=== PATIENT | female | born 1980 | race Caucasian/White ===

== ENCOUNTER 2018-08-18 15:13 | Emergency (ER) | payer OTHER ==
[2018-08-18 15:21] VITALS: RESP 18
[2018-08-18] MEDS ORDERED: ACETAMINOPHEN TAB 500 MG TAB PO STA (15:49)
--- NOTE | 2018-08-18 15:54 | ED ---
General Adult HPI - General Chief complaint: Head Injury Stated complaint: Dizzy Source: patient, RN notes reviewed Mode of arrival: ambulatory Limitations: no limitations - History of Present Illness Initial comments: Patient is a 38-year-old female with history of migraines and chronic neck pain who presents the emergency department with complaint of headache that started yesterday after she hit the top of her head on the freezer door at 3 PM yesterday. She reported headache started about 3 hours after that and has continued through today. She tried taking Aleve yesterday without relief. Denies taking any pain medication today. Denies any blood thinner use. Admits to feeling dizzy. Admits to neck pain which she states is chronic. Denies loss of consciousness. Patient denies any recent fever, chills, shortness of breath, chest pain, back pain, abdominal pain, nausea or vomiting, numbness or tingling , visual changes, or any other complaints. - Related Data Previous Rx's Medication Instructions Recorded Ibuprofen 800 mg PO Q8H PRN 7 Days #21 tablet 05/17/18 valACYclovir HCL [Valacyclovir] 1,000 mg PO Q12HR 7 Days #14 tab 05/17/18 Allergies Allergy/AdvReac Type Severity Reaction Status Date / Time Penicillins Allergy Unknown Verified 08/18/18 15:15 Review of Systems ROS Statement: Those systems with pertinent positive or pertinent negative responses have been documented in the HPI. ROS Other: All systems not noted in ROS Statement are negative. Past Medical History Additional Past Medical History / Comment(s): PCOS History of Any Multi-Drug Resistant Organisms: None Reported Additional Past Surgical History / Comment(s): D/C Past Psychological History: No Psychological Hx Reported Smoking Status: Never smoker Past Alcohol Use History: Occasional Past Drug Use History: None Reported General Exam Limitations: no limitations General appearance: alert, in no apparent distress Head exam: Present: atraumatic, normocephalic Eye exam: Present: normal appearance, PERRL, EOMI ENT exam: Present: normal oropharynx, TM's normal bilaterally, normal external ear exam Neck exam: Present: full ROM, other (Chronic neck pain; pain with ROM. No midline tenderness to palpation.) Respiratory exam: Present: normal lung sounds bilaterally. Absent: wheezes, rales, rhonchi Cardiovascular Exam: Present: regular rate, normal rhythm Extremities exam: Present: other (Strength 5/5 all extremities.) Back exam: Absent: tenderness Neurological exam: Present: alert, oriented X3, CN II-XII intact, normal gait Skin exam: Present: warm, dry Course Vital Signs 08/18/18 15:15 Temperature 98.2 F Pulse Rate 62 Respiratory 18 Rate Blood Pressure 125/81 O2 Sat by Pulse 99 Oximetry Medical Decision Making - Medical Decision Making Ordered Tylenol here. CT of the brain is negative. CT of the cervical spine reveals cervical kyphosis, but is otherwise negative. Case discussed in detail with attending physician Dr. Alfaro. Disposition Clinical Impression: Head injury Disposition: HOME SELF-CARE Condition: Good Instructions (If sedation given, give patient instructions): Head Injury (ED) Additional Instructions: Follow-up with your PCP in 1 to 2 days. Return to the emergency department if your symptoms worsen or other concerns. Is patient prescribed a controlled substance at d/c from ED?: No Referrals: Ai Ibarra MD [Primary Care Provider] - 1-2 days Time of Disposition: 17:00
--- NOTE | 2018-08-18 16:32 | CT ---
EXAMINATION TYPE: CT brain herb wo con DATE OF EXAM: 08/18/2018 COMPARISON: 04/16/2011 HISTORY: head and neck pain. CT DLP: 1571.8 mGycm, Automated exposure control for dose reduction was used. CONTRAST: Patient injected with 0 mL of Isovue 300. CT of the brain is performed utilizing 3 mm thick sections through the posterior fossa and 3 mm thick sections through the remaining calvarium. Study is performed within 24 hours of arrival to the hospital. No abnormal hyperdensity is present to suggest an acute intracranial hemorrhage. No mass lesion is evident. No acute infarcts are evident. Ventricles and sulci are appropriate for the patient age. Hyperostosis frontalis internus is present, a normal variant. Paranasal sinuses and mastoid air cells within the [id number] are clear. IMPRESSIONS: 1. No acute intracranial process. CT cervical spine. COMPARISON: None CT of the cervical spine is performed in the axial plane at 2 mm thick sections. Reconstructed image s in the coronal, and sagittal plane are reviewed on the computer. No acute fractures are evident. There is a cervical kyphosis present. Disc heights are preserved. Vertebral body heights are preserved. No spinal canal stenosis is evident. No neural foraminal stenosis is evident. IMPRESSIONS: 1. Cervical kyphosis. No acute cervical abnormality otherwise identified.
[2018-08-18 17:13] VITALS: BP 129/74; PULSE 52; TEMP 97.5
== END 2018-08-18 17:12 | disposition home or self-care (01) ==
LOC: EC 15:13
DX: S09.90XA Unspecified injury of head, initial encounter (principal); M40.202 Unspecified kyphosis, cervical region; Z88.0 Allergy status to penicillin; W22.8XXA Striking against or struck by other objects, initial encounter
CPT/HCPCS: 70450; 72125; 99284

== ENCOUNTER 2018-10-25 18:14 | Emergency (ER) | payer OTHER ==
[2018-10-25] MEDS ORDERED: SODIUM CHLORIDE 0.9% 1,000 ML IV ONE (18:44)
[2018-10-25] MEDS ORDERED: KETOROLAC 30 MG/ML 1 ML VIAL IVP STA (18:44)
--- NOTE | 2018-10-25 19:03 | ED ---
Female Urogenital HPI - General Chief complaint: Vaginal Bleeding Stated complaint: vag bleeding Time Seen by Provider: 10/25/18 18:23 Source: patient Mode of arrival: ambulatory Limitations: no limitations - History of Present Illness Initial comments: 38 year-old female patient presents to the emergency department today for evaluation of heavy vaginal bleeding with passage of large clots. Patient states that her last menstrual period started on September 30 and ended on the first. She states she started bleeding again on October 18 and has been bleeding since. Patient states she is wearing 2 pads at a time and having to change them every hour. States she is passing half-dollar size clots. States she is having cramping to the suprapubic region. Denies any radiation of the pain to her back. Patient states she does have a history of polycystic ovarian syndrome and does have irregular periods. Patient states she did call her panelboard tank pumper today who directed her to present to the emergency department for further evaluation. Patient states she has feeling fatigued but denies any dizziness or weakness. She denies any use of antiplatelet antiplatelet medications. Denies any chance of . She is G4, PO, A4. Patient denies any recent rash, fever, chills, shortness breath, chest pain, nausea, vomiting, diarrhea, constipation, numbne ss, tingling, dizziness, weakness, hematuria, dysuria, urinary urgency, urinary frequency, headache, visual changes, or any other complaints. - Related Data Previous Rx's Medication Instructions Recorded Ibuprofen 800 mg PO Q8H PRN 7 Days #21 tablet 05/17/18 valACYclovir HCL [Valacyclovir] 1,000 mg PO Q12HR 7 Days #14 tab 05/17/18 Ibuprofen 800 mg PO TID PRN #30 tablet 10/25/18 Allergies Allergy/AdvReac Type Severity Reaction Status Date / Time Penicillins Allergy Unknown Verified 10/25/18 18:20 Review of Systems ROS Statement: Those systems with pertinent positive or pertinent negative responses have been documented in the HPI. ROS Other: All systems not noted in ROS Statement are negative. Past Medical History Additional Past Medical History / Comment(s): PCOS History of Any Multi-Drug Resistant Organisms: None Reported Additional Past Surgical History / Comment(s): D/C Past Psychological History: No Psychological Hx Reported Smoking Status: Never smoker Past Alcohol Use History: Occasional Past Drug Use History: None Reported General Exam Limitations: no limitations General appearance: alert, in no apparent distress, other (Physical well- developed, well-nourished adult female patient in no acute distress. Vital signs upon presentation are temperature 98.4F, pulse 71, respirations 18, blood pressure 113/68, pulse ox 98% on room air.) Eye exam: Present: normal appearance, PERRL, EOMI. Absent: scleral icterus, conjunctival injection, periorbital swelling ENT exam: Present: normal exam, normal oropharynx, mucous membranes moist Respiratory exam: Present: normal lung sounds bilaterally. Absent: respiratory distress, wheezes, rales, rhonchi, stridor Cardiovascular Exam: Present: regular rate, normal rhythm, normal heart sounds. Absent: systolic murmur, diastolic murmur, rubs, gallop, clicks GI/Abdominal exam: Present: soft, tenderness (Suprapubic tenderness), normal bowel sounds. Absent: distended, guarding, rebound, rigid External exam: Present: normal external exam Speculum exam: Present: vaginal bleeding (Mild dark red vaginal bleeding) By manual exam: Present: uterine tenderness. Absent: adnexal tenderness Neurological exam: Present: alert, oriented X3, CN II-XII intact Psychiatric exam: Present: normal affect, normal mood Skin exam: Present: warm, dry, intact, normal color. Absent: rash Course Vital Signs 10/25/18 10/25/18 18:18 20:20 Temperature 98.4 F 97.3 F L Pulse Rate 71 57 L Respiratory 18 16 Rate Blood Pressure 113/68 95/44 O2 Sat by Pulse 98 100 Oximetry Medical Decision Making - Medical Decision Making 38-year-old female patient presented to the emergency department today for evaluation of heavy vaginal bleeding. Physical examination is unremarkable. Did see a small amount of dark red vaginal bleeding and pelvic exam. Labs reviewed and are unremarkable. Transvaginal ultrasound was obtained and showed normal uterus with left-sided ovarian cyst measuring 4.1 cm. She'll be discharged home at this time to follow-up with her panelboard tank pumper for recheck in 1-2 days. She was educated regarding signs or symptoms of ovarian torsion. Return parameters were discussed in detail. She verbalizes understanding and agrees with this plan. - Lab Data Result diagrams: 10/25/18 19:44 10/25/18 19:44 Lab Results 10/25/18 10/25/1810/25/19 Range/Units 19:44 19:44 19:44 WBC 7.5 (3.8-10.6) k/uL RBC 4.36 (3.80-5.40) m/uL Hgb 12.1 (11.4-16.0) gm/dL Hct 36.7 (34.0-46.0) % MCV 84.2 (80.0-100.0) fL MCH 27.8 (25.0-35.0) pg MCHC 33.0 (31.0-37.0) g/dL RDW 14.4 (11.5-15.5) % Plt Count 254 (150-450) k/uL Neutrophils % 48 % Lymphocytes % 35 % Monocytes % 4 % Eosinophils % 12 % Basophils % 1 % Neutrophils # 3.6 (1.3-7.7) k/uL Lymphocytes # 2.6 (1.0-4.8) k/uL Monocytes # 0.3 (0-1.0) k/uL Eosinophils # 0.9 H (0-0.7) k/uL Basophils # 0.0 (0-0.2) k/uL PT 10.0 (9.0-12.0) sec INR 0.9 (<1.2) APTT 23.6 (22.0-30.0) sec Sodium 139 (137-145) mmol/L Potassium 3.9 (3.5-5.1) mmol/L Chloride 108 H (98-107) mmol/L Carbon Dioxide 22 (22-30) mmol/L Anion Gap 9 mmol/L BUN 14 (7-17) mg/dL Creatinine 0.73 (0.52-1.04) mg/dL Est GFR (CKD-EPI)AfAm >90 (>60 ml/min/1.73 sqM) Est GFR (CKD-EPI)NonAf >90 (>60 ml/min/1.73 sqM) Glucose 80 (74-99) mg/dL Calcium 8.9 (8.4-10.2) mg/dL Total Bilirubin 0.4 (0.2-1.3) mg/dL AST 21 (14-36) U/L ALT 29 (9-52) U/L Alkaline Phosphatase 50 (38-126) U/L Total Protein 6.9 (6.3-8.2) g/dL Albumin 3.8 (3.5-5.0) g/dL HCG, Qual Not Detected Urine Color Urine Appearance (Clear) Urine pH (5.0-8.0) Ur Specific [place] (1.001-1.035) Urine Protein (Negative) Urine Glucose (UA) (Negative) Urine Ketones (Negative) Urine Blood (Negative) Urine Nitrite (Negative) Urine Bilirubin (Negative) Urine Urobilinogen (<2.0) mg/dL Ur Leukocyte Esterase (Negative) Urine RBC (0-5) /hpf Urine WBC (0-5) /hpf Ur Squamous Epith Cells (0-4) /hpf Urine Bacteria (None) /hpf Urine Mucus (None) /hpf 10/25/18 Range/Units 20:10 WBC (3.8-10.6) k/uL RBC (3.80-5.40) m/uL Hgb (11.4-16.0) gm/dL Hct (34.0-46.0) % MCV (80.0-100.0) fL MCH (25.0-35.0) pg MCHC (31.0-37.0) g/dL RDW (11.5-15.5) % Plt Count (150-450) k/uL Neutrophils % % Lymphocytes % % Monocytes % % Eosinophils % % Basophils % % Neutrophils # (1.3-7.7) k/uL Lymphocytes # (1.0-4.8) k/uL Monocytes # (0-1.0) k/uL Eosinophils # (0-0.7) k/uL Basophils # (0-0.2) k/uL PT (9.0-12.0) sec INR (<1.2) APTT (22.0-30.0) sec Sodium (137-145) mmol/L Potassium (3.5-5.1) mmol/L Chloride (98-107) mmol/L Carbon Dioxide (22-30) mmol/L Anion Gap mmol/L BUN (7-17) mg/dL Creatinine (0.52-1.04) mg/dL Est GFR (CKD-EPI)AfAm (>60 ml/min/1.73 sqM) Est GFR (CKD-EPI)NonAf (>60 ml/min/1.73 sqM) Glucose (74-99) mg/dL Calcium (8.4-10.2) mg/dL Total Bilirubin (0.2-1.3) mg/dL AST (14-36) U/L ALT (9-52) U/L Alkaline Phosphatase (38-126) U/L Total Protein (6.3-8.2) g/dL Albumin (3.5-5.0) g/dL HCG, Qual Urine Color Colorless Urine Appearance Clear (Clear) Urine pH 6.0 (5.0-8.0) Ur Specific [place] 1.004 (1.001-1.035) Urine Protein Negative (Negative) Urine Glucose (UA) Negative (Negative) Urine Ketones Negative (Negative) Urine Blood Moderate H (Negative) Urine Nitrite Negative (Negative) Urine Bilirubin Negative (Negative) Urine Urobilinogen <2.0 (<2.0) mg/dL Ur Leukocyte Esterase Negative (Negative) Urine RBC 1 (0-5) /hpf Urine WBC <1 (0-5) /hpf Ur Squamous Epith Cells <1 (0-4) /hpf Urine Bacteria Rare H (None) /hpf Urine Mucus Rare H (None) /hpf - Radiology Data Radiology results: report reviewed, image reviewed Transvaginal ultrasound is obtained. Report was reviewed in its entirety. Impression by Dr. Rader shows a 4.1cm cyst or cystic lesion left ovary. Advised ultrasound follow-up in 6 weeks. Disposition Clinical Impression: Dysfunctional uterine bleeding, Left ovarian cyst Disposition: HOME SELF-CARE Condition: Good Instructions (If sedation given, give patient instructions): Dysfunctional Uterine Bleeding (ED), Ovarian Cyst (ED) Additional Instructions: Increase fluids. Follow-up with her panelboard tank pumper for recheck as soon as possible. Return to the emergency department immediately for any new, worseni ng, or concerning symptoms. Prescriptions: Ibuprofen 800 mg PO TID PRN #30 tablet PRN Reason: Pain Is patient prescribed a controlled substance at d/c from ED?: No Referrals: Ai Ibarra MD [Primary Care Provider] - 1-2 days Time of Disposition: 20:43
--- NOTE | 2018-10-25 19:41 | US ---
EXAMINATION TYPE: US transvaginal DATE OF EXAM: 10/25/2018 COMPARISON: Pelvic ultrasound 2013 CLINICAL HISTORY: pain. Heavy bleeding cramping PCOS. TECHNIQUE: Transvaginal (TV). EXAM MEASUREMENTS: Uterus: 6.3 x 3.9 x 4.8 cm Endometrial Stripe: 0.5 cm Right Ovary: 3.5 x 2.2 x 3.2 cm Left Ovary: 3.9 x 3.1 x 3.8 cm 1. Uterus: Anteverted Nabothian cyst seen. 2. Endometrium: wnl 3. Right Ovary: Follicles seen. 4. Left Ovary: Cystic area seen 4.1 x 2.1 x 3.3cm. Spectral, color and waveform doppler imaging shows good arterial and venous flow within the ovaries ;. 5. Bilateral Adnexa: wnl 6. Posterior cul-de-sac: wnl Heterogeneous uterus is seen. No free fluid in cul-de-sac. No suspicious thickening of endometrial. T here is 4.1 cm oval cystic lesion left ovary not completely anechoic. Satisfactory blood flow to left ovary is noted towards end of study. IMPRESSION: A 4.1 cm cyst or cystic lesion left ovary. Advise ultrasound follow-up in 6 weeks' time t o reassess.
[2018-10-25 19:56] LABS: Basophils % (A) 1 %; Eosinophils # (A) 0.9 k/uL (0-0.7); Eosinophils % (A) 12 %; HCT 36.7 % (34.0-46.0); HGB 12.1 gm/dL (11.4-16.0); Lymphocytes # (A) 2.6 k/uL (1.0-4.8); Lymphocytes % (A) 35 %; MCH 27.8 pg (25.0-35.0); MCV 84.2 fL (80.0-100.0); Mean Platelet Volume 7.9; Monocytes # (A) 0.3 k/uL (0-1.0); Monocytes % (A) 4 %; Neutrophils # (A) 3.6 k/uL (1.3-7.7); Neutrophils % (A) 48 %; Platelet Count 254 k/uL (150-450); RBC 4.36 m/uL (3.80-5.40); RDW 14.4 % (11.5-15.5); WBC 7.5 k/uL (3.8-10.6)
[2018-10-25 20:05] LABS: ALT 29 U/L (9-52); AST 21 U/L (14-36); Albumin 3.8 g/dL (3.5-5.0); Alkaline Phosphatase 50 U/L (38-126); Anion Gap 9 mmol/L; Blood Urea Nitrogen 14 mg/dL (7-17); Calcium 8.9 mg/dL (8.4-10.2); Carbon Dioxide 22 mmol/L (22-30); Chloride 108 mmol/L (98-107); Glucose 80 mg/dL (74-99); Potassium 3.9 mmol/L (3.5-5.1); Sodium 139 mmol/L (137-145); Total Bilirubin 0.4 mg/dL (0.2-1.3); Total Protein 6.9 g/dL (6.3-8.2)
[2018-10-25 20:09] LABS: INR 0.9 (<1.2); Partial Thromboplastin Time 23.6 sec (22.0-30.0)
[2018-10-25 20:15] LABS: HCG,Qualitative Serum Not Detected
[2018-10-25 20:34] LABS: Appearance,Urine Clear (Clear); Bacteria,Urine Rare /hpf; Bilirubin,Urine Negative (Negative); Blood,Urine Moderate (Negative); Color,Urine Colorless; Glucose,Urine (UA) Negative (Negative); Ketones,Urine Negative (Negative); Leukocyte Esterase,Urine Negative (Negative); Mucus,Urine Rare /hpf; Nitrite,Urine Negative (Negative); Protein,Urine Negative (Negative); RBC,Urine 1 /hpf (0-5); Specific Gravity,Urine 1.004 (1.001-1.035); Squamous Epithelial Cell,Urine <1 /hpf (0-4); Urobilinogen,Urine <2.0 mg/dL (<2.0); WBC,Urine <1 /hpf (0-5)
[2018-10-25] MEDS ORDERED: ACET/COD 300 MG/30 MG STARTER PACK 6 TAB BTL PO STA (20:43)
[2018-10-25 20:51] VITALS: BP 95/44; PULSE 57; RESP 16; TEMP 97.3
== END 2018-10-25 21:14 | disposition home or self-care (01) ==
LOC: EC 18:14
DX: N83.202 Unspecified ovarian cyst, left side (principal); N93.8 Other specified abnormal uterine and vaginal bleeding; Z88.0 Allergy status to penicillin
CPT/HCPCS: 36415; 80053; 85025; 85610; 85730; 81001; 84703; 93975; 76830; 99284; 96374; 96361; J1885

== ENCOUNTER 2021-01-15 06:04 | Day surgery (SDC) | payer OTHER ==
[2021-01-10 10:11] VITALS: BMI 47.1
[2021-01-15 08:09] VITALS: RESP 16; TEMP 97.7
[2021-01-15 09:40] VITALS: BP 113/69; PULSE 71
== END 2021-01-15 10:06 | disposition home or self-care (01) ==
LOC: OR 06:04
PROVIDERS: ATTEND Obstetrics & Gynecology
DX: N92.0 Excessive and frequent menstruation with regular cycle (principal); L91.8 Other hypertrophic disorders of the skin; E28.2 Polycystic ovarian syndrome; D64.9 Anemia, unspecified; M54.6 Pain in thoracic spine; M54.5 Low back pain; E66.01 Morbid (severe) obesity due to excess calories; N94.6 Dysmenorrhea, unspecified; M79.18 Myalgia, other site; Z86.711 Personal history of pulmonary embolism; Z79.01 Long term (current) use of anticoagulants; G25.81 Restless legs syndrome; Z86.718 Personal history of other venous thrombosis and embolism; D68.69 Other thrombophilia; R42 Dizziness and giddiness; Z68.42 Body mass index [BMI] 45.0-49.9, adult; Z88.0 Allergy status to penicillin; M32.9 Systemic lupus erythematosus, unspecified; J45.909 Unspecified asthma, uncomplicated
CPT/HCPCS: 81025; 88304; 88305; 17110; 58563; J2250; J0330; J1100; J2405; J2001; J3010; J2704; J1170

== ENCOUNTER 2022-04-17 11:33 | Observation (INO) | payer OTHER ==
[2022-04-17 12:58] LABS: Basophils # (A) 0.1 k/uL (0-0.2); Basophils % (A) 1 %; Eosinophils # (A) 0.2 k/uL (0-0.7); Eosinophils % (A) 3 %; HCT 39.7 % (34.0-46.0); HGB 13.1 gm/dL (11.4-16.0); Lymphocytes # (A) 2.7 k/uL (1.0-4.8); Lymphocytes % (A) 34 %; MCH 29.2 pg (25.0-35.0); MCHC 32.9 g/dL (31.0-37.0); MCV 88.6 fL (80.0-100.0); Monocytes # (A) 0.5 k/uL (0-1.0); Monocytes % (A) 6 %; Neutrophils # (A) 4.4 k/uL (1.3-7.7); Neutrophils % (A) 55 %; Platelet Count 315 k/uL (150-450); RBC 4.48 m/uL (3.80-5.40); RDW 13.4 % (11.5-15.5)
--- NOTE | 2022-04-17 13:06 | XR ---
EXAMINATION TYPE: XR chest 2V DATE OF EXAM: 04/17/2022 12:57 PM COMPARISON: None TECHNIQUE: XR chest 2V Frontal and lateral views of the chest. CLINICAL INDICATION:Female, 41 years old with history of Chest Pain; FINDINGS: Lungs/Pleura: There is no evidence of pleural effusion, focal consolidation, or pneumothorax. Eventr ation of the right hemidiaphragm. Pulmonary vascularity: Unremarkable. Heart/mediastinum: Cardiomediastinal silhouette is unremarkable. Musculoskeletal: No acute osseous pathology. IMPRESSION: No acute cardiopulmonary disease/process.
[2022-04-17 13:10] LABS: ALT 26 U/L (4-34); AST 24 U/L (14-36); African American GFR (CKD) >90 (>60 ml/min/1.73 sqM); Albumin 4.1 g/dL (3.5-5.0); Alkaline Phosphatase 60 U/L (38-126); Anion Gap 10 mmol/L; Blood Urea Nitrogen 18 mg/dL (7-17); Calcium 9.1 mg/dL (8.4-10.2); Carbon Dioxide 22 mmol/L (22-30); Chloride 104 mmol/L (98-107); Glucose 88 mg/dL (74-99); Non-African American GFR(CKD) 88 (>60 ml/min/1.73 sqM); Partial Thromboplastin Time 25.9 sec (22.0-30.0); Potassium 4.5 mmol/L (3.5-5.1); Prothrombin Time 10.7 sec (9.0-12.0); Sodium 136 mmol/L (137-145); Total Bilirubin 0.6 mg/dL (0.2-1.3); Total Protein 6.9 g/dL (6.3-8.2)
--- NOTE | 2022-04-17 18:11 | ED ---
General Adult HPI - General Chief complaint: Chest Pain Stated complaint: Chest pain, L arm tingling Time Seen by Provider: 04/17/22 17:45 Source: patient, RN notes reviewed Mode of arrival: wheelchair Limitations: no limitations - History of Present Illness Initial comments: Patient is a pleasant 41-year-old female presenting to the emergency department with concerns of chest discomfort. Onset of symptoms was an hour prior to arrival. Symptoms do continue. Symptoms are mild. Discomfort feels sharp however patient has been belching some. There is some discomfort, mild the left arm as well. No dyspnea. No nausea. Patient does have history of lupus and does have history of family heart disease at a young age. - Related Data Home Medications Medication Instructions Recorded Confirmed Acetaminophen-Codeine 300-30mg 1 tab PO Q6H PRN 01/10/21 12/03/21 [Tylenol w/codeine #3] Cyclobenzaprine [Flexeril] 10 mg PO DAILY PRN 01/10/21 12/03/21 Peggy Root Vitamin 1 tab PO DAILY 01/10/21 12/03/21 Meclizine [Antivert] 12.5 mg PO DAILY 01/10/21 12/03/21 Rivaroxaban [Xarelto] 20 mg PO DAILY 01/10/21 12/03/21 Famotidine [Pepcid] 20 mg PO DAILY 01/15/21 12/03/21 DULoxetine HCL [Cymbalta] 60 mg PO 03/19/22 Furosemide [Lasix] 03/19/22 Gabapentin [Neurontin] 100 mg PO TID 03/19/22 03/19/22 Phentermine HCl [Adipex-P] 37.5 mg PO DAILY 03/19/22 03/19/22 Propranolol [Inderal] 20 mg PO QID 03/19/22 03/19/22 Spironolactone 50 mg PO 03/19/22 Allergies Allergy/AdvReac Type Severity Reaction Status Date / Time Penicillins Allergy Rash/Hives Verified 03/26/22 12:08 Review of Systems ROS Statement: Those systems with pertinent positive or pertinent negative responses have been documented in the HPI. ROS Other: All systems not noted in ROS Statement are negative. Constitutional: Denies: fever Eyes: Denies: eye pain ENT: Denies: ear pain Respiratory: Denies: cough, dyspnea Cardiovascular: Reports: as per HPI, chest pain Endocrine: Denies: fatigue Gastrointestinal: Denies: abdominal pain Genitourinary: Denies: dysuria Musculoskeletal: Denies: back pain Skin: Denies: rash Neurological: Denies: weakness Past Medical History Past Medical History: Asthma, Deep Vein Thrombosis (DVT), Pulmonary Embolus (PE) Additional Past Medical History / Comment(s): hx of vertigo, Lupus, PCOS, hx of anemia, hx of iron infusions History of Any Multi-Drug Resistant Organisms: None Reported Past Surgical History: Ablation Additional Past Surgical History / Comment(s): D/C x2 Past Anesthesia/Blood Transfusion Reactions: Motion Sickness Past Psychological History: No Psychological Hx Reported Smoking Status: Never smoker - Past Family History Mother Family Medical History: No Reported History General Exam Limitations: no limitations General appearance: alert, in no apparent distress Head exam: Present: normocephalic Eye exam: Present: normal appearance Neck exam: Present: normal inspection Respiratory exam: Present: normal lung sounds bilaterally. Absent: chest wall tenderness Cardiovascular Exam: Present: regular rate, normal rhythm Expanded Peripheral pulses: 2+: Radial (R), Radial (L), Posterior Tibialis (R), Posterior Tibialis (L) GI/Abdominal exam: Present: soft. Absent: tenderness Extremities exam: Present: normal inspection. 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 CO 137. QRS 106. QT 374. QTC 392. Normal axis. Normal QRS. No acute ST change. EKG Findings - EKG Comments: EKG Findings:: Original EKG shows sinus rhythm 82. CO 147. QRS 99. QT 343. QTC 381. Normal axis. Normal QRS. No acute ST change. Medical Decision Making - Medical Decision Making Case discussed with Dr. Macias who will admit his patient. Patient is made aware of plan. - Lab Data Result diagrams: 04/17/22 12:22 04/17/22 12:22 Lab Results 04/17/22 04/17/22 04/17/22 Range/Units 12:22 12:22 12:22 WBC 8.0 (3.8-10.6) k/uL RBC 4.48 (3.80-5.40) m/uL Hgb 13.1 (11.4-16.0) gm/dL Hct 39.7 (34.0-46.0) % MCV 88.6 (80.0-100.0) fL MCH 29.2 (25.0-35.0) pg MCHC 32.9 (31.0-37.0) g/dL RDW 13.4 (11.5-15.5) % Plt Count 315 (150-450) k/uL MPV 8.0 Neutrophils % 55 % Lymphocytes % 34 % Monocytes % 6 % Eosinophils % 3 % Basophils % 1 % Neutrophils # 4.4 (1.3-7.7) k/uL Lymphocytes # 2.7 (1.0-4.8) k/uL Monocytes # 0.5 (0-1.0) k/uL Eosinophils # 0.2 (0-0.7) k/uL Basophils # 0.1 (0-0.2) k/uL PT 10.7 (9.0-12.0) sec INR 1.0 (<1.2) APTT 25.9 (22.0-30.0) sec D-Dimer <0.17 (<0.60) mg/L FEU Sodium 136 L (137-145) mmol/L Potassium 4.5 (3.5-5.1) mmol/L Chloride 104 (98-107) mmol/L Carbon Dioxide 22 (22-30) mmol/L Anion Gap 10 mmol/L BUN 18 H (7-17) mg/dL Creatinine 0.84 (0.52-1.04) mg/dL Est GFR (CKD-EPI)AfAm >90 (>60 ml/min/1.73 sqM) Est GFR (CKD-EPI)NonAf 88 (>60 ml/min/1.73 sqM) Glucose 88 (74-99) mg/dL Calcium 9.1 (8.4-10.2) mg/dL Magnesium 2.0 (1.6-2.3) mg/dL Total Bilirubin 0.6 (0.2-1.3) mg/dL AST 24 (14-36) U/L ALT 26 (4-34) U/L Alkaline Phosphatase 60 (38-126) U/L Troponin I (0.000-0.034) ng/mL NT-Pro-B Natriuret Pep pg/mL Total Protein 6.9 (6.3-8.2) g/dL Albumin 4.1 (3.5-5.0) g/dL 04/17/22 04/17/22 Range/Units 12:22 12:22 WBC (3.8-10.6) k/uL RBC (3.80-5.40) m/uL Hgb (11.4-16.0) gm/dL Hct (34.0-46.0) % MCV (80.0-100.0) fL MCH (25.0-35.0) pg MCHC (31.0-37.0) g/dL RDW (11.5-15.5) % Plt Count (150-450) k/uL MPV Neutrophils % % Lymphocytes % % Monocytes % % Eosinophils % % Basophils % % Neutrophils # (1.3-7.7) k/uL Lymphocytes # (1.0-4.8) k/uL Monocytes # (0-1.0) k/uL Eosinophils # (0-0.7) k/uL Basophils # (0-0.2) k/uL PT (9.0-12.0) sec INR (<1.2) APTT (22.0-30.0) sec D-Dimer (<0.60) mg/L FEU Sodium (137-145) mmol/L Potassium (3.5-5.1) mmol/L Chloride (98-107) mmol/L Carbon Dioxide (22-30) mmol/L Anion Gap mmol/L BUN (7-17) mg/dL Creatinine (0.52-1.04) mg/dL Est GFR (CKD-EPI)AfAm (>60 ml/min/1.73 sqM) Est GFR (CKD-EPI)NonAf (>60 ml/min/1.73 sqM) Glucose (74-99) mg/dL Calcium (8.4-10.2) mg/dL Magnesium (1.6-2.3) mg/dL Total Bilirubin (0.2-1.3) mg/dL AST (14-36) U/L ALT (4-34) U/L Alkaline Phosphatase (38-126) U/L Troponin I <0.012 (0.000-0.034) ng/mL NT-Pro-B Natriuret Pep 52 pg/mL Total Protein (6.3-8.2) g/dL Albumin (3.5-5.0) g/dL - Radiology Data Radiology results: image reviewed (Chest x-ray shows no acute process) Disposition Clinical Impression: Chest pain Disposition: ADMITTED IP TO THIS HOSP Is patient prescribed a controlled substance at d/c from ED?: No Referrals: Alex Macias MD [Primary Care Provider] - 1-2 days Time of Disposition: 18:29
[2022-04-17] MEDS ORDERED: NITROGLYCERIN SL TABS 0.4 MG TAB SUBLINGUAL PRN (18:29)
[2022-04-17] MEDS ORDERED: ASPIRIN 81 MG PO STA (18:29)
[2022-04-17] MEDS: NITROGLYCERIN OINT 1 INCH/GM PACKET TOPICAL SCH (19:00)
[2022-04-17] MEDS ORDERED: SYMBICORT 80-4.5 MCG INHALER INHALATION PRN (20:47)
[2022-04-17] MEDS ORDERED: Acetaminophen-Codeine 300-30mg TAB PO PRN (20:47)
[2022-04-17] MEDS ORDERED: PANTOPRAZOLE 40 MG TABLET PO SCH (21:00)
[2022-04-17] MEDS ORDERED: RIVAROXABAN 20 MG TAB PO SCH (21:47)
[2022-04-17] MEDS: PROPRANOLOL 20 MG TAB PO SCH (22:30)
[2022-04-17] MEDS: GABAPENTIN 100 MG CAP PO SCH (22:30)
[2022-04-17] MEDS: DULoxetine HCL 60 MG CAPSULE.DR PO SCH (22:31)
[2022-04-18] MEDS: NITROGLYCERIN OINT 1 INCH/GM PACKET TOPICAL SCH ×2 (00:20→09:36)
--- NOTE | 2022-04-18 04:54 | HP ---
HISTORY AND PHYSICAL HISTORY OF PRESENT ILLNESS: A 41-year-old female came to the ER with chest discomfort, onset of symptoms is an hour prior to admission. Symptoms were mild. She some discomfort in mid upper arm. No dyspnea or nausea. History of lupus. Family history of heart disease at young age. Troponins are negative x3. She is admitted for rule out VT. HOME MEDICATIONS: 1. Antivert 12.5 daily. 2. Xarelto 20 daily. 3. Pepcid 20 daily. 4. Cymbalta 60 daily. 5. Lasix daily. 6. Neurontin 100 mg t.i.d. 7. Tylenol 3 p.r.n. 8. Propranolol 20 q.i.d. 9. Spironolactone 50 mg daily. ALLERGIES: Penicillin. REVIEW OF SYSTEMS: A 14-point review of systems otherwise negative. No cough, shortness of breath, hemoptysis, tachypnea, or tachycardia. PAST MEDICAL HISTORY: Asthma, DVT, PE, history of vertigo, lupus, and anemia. PHYSICAL EXAMINATION: VITAL SIGNS: Temperature 97.46, pulse 77-90, respiratory rate 18-20, blood pressure 114 to 116 over 70s to 90s, and O2 100%. CARDIOVASCULAR: S1, S2. LUNGS: Clear. GI. Soft. HEMATOLOGY: Negative Homans. PSYCH: Fair mood and affect. ENDOCRINE: BMI is over 40. HEENT: Pupils equal, round, reactive. INTEGUMENT: No rash, excoriation, or bruising. EKG, sinus rhythm. LABORATORY DATA: Labs were reviewed. Negative troponins times 3. Negative D-dimer. ASSESSMENT: 1. Atypical chest pain, rule out myocardial infarction. 2. History of lupus. 3. History of asthma, chronic obstructive pulmonary disease. 4. History of multiple pulmonary embolisms. I suspect she is negative for any cardiac issues at this time. We will await to see what tumbler machine operator says in the morning to clear her prior to discharge. MMODL / IJN: [id number] /
[2022-04-18] MEDS ORDERED: SPIRONOLACTONE 25 MG TAB PO SCH (08:00)
[2022-04-18] MEDS ORDERED: PROPRANOLOL 20 MG TAB PO SCH (08:00)
[2022-04-18] MEDS ORDERED: DULoxetine HCL 60 MG CAPSULE.DR PO SCH (08:00)
[2022-04-18] MEDS ORDERED: FUROSEMIDE 20 MG TAB PO SCH (08:00)
[2022-04-18] MEDS ORDERED: ASPIRIN 325 MG TAB PO SCH (09:00)
[2022-04-18] MEDS ORDERED: ASPIRIN 81 MG PO SCH (09:00)
[2022-04-18 09:11] VITALS: BP 104/59; RESP 16; TEMP 98
[2022-04-18] MEDS: PROPRANOLOL 20 MG TAB PO SCH (09:36)
[2022-04-18] MEDS ORDERED: DOBUTamine DRIP for NUC MED 500 MG in DEXTROSE/WATER 1 250ML.BAG IV PRN (10:05)
[2022-04-18] MEDS ORDERED: SODIUM CHLORIDE 0.9% 1,000 ML IV SCH (10:15)
[2022-04-18 10:49] LABS: Chol/HDL Ratio 3.98 Ratio; LDL Cholesterol,Calculated 110.5 mg/dL (0.0-131.0); VLDL Calculation 18.34 mg/dL (5.00-40.00)
--- NOTE | 2022-04-18 11:11 | P.CRDCN ---
History of Present Illness History of present illness: HISTORY OF PRESENT ILLNESS: This is a 41-year-old female with a past medical history significant for DVT/PE (2 years ago) and lupus. 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 We have been asked to see the patient in consultation for chest pain. Patient examined a t the bedside. Patient states yesterday she began having pain in the upper part of her chest. She reports feeling short of breath as well. She states she began to have tingling in her left arm. She states the pain was intermittent throughout most of the day yesterday. She states she did not take anything for the pain. At the time of my examination this morning she denies any chest pain or pressure. She denies any previous cardiac workup. She denies any history of hypertension, hyperlipidemia, or diabetes. She is a nonsmoker. She denies using alcohol for over 1 year. She denies any drug use including marijuana. She reports a significant family history of coronary artery disease and states her dad had 2 heart attacks in his late 40s and at age 55. * EKG reveals sinus mechanism with nonspecific ST-T wave changes * Chest xray negative for acute process * Laboratory data: WBC 8.0. Hemoglobin 13.1. Platelet count 315. D-dimer 0.17. Sodium 136. Potassium 4.5. BUN 18. Creatinine 0.84. Troponin negative 3. * Current home cardiac medications include spironolactone 50 mg daily, Xarelto 20 mg at night, Lasix 20 mg daily REVIEW OF SYSTEMS: At the time of my exam: CONSTITUTIONAL: Denies fever or chills. HEENT: Denies blurred vision, vision changes, or eye pain. Denies hemoptysis CARDIOVASCULAR: Denies chest pain. Denies orthopnea. Denies PND. Denies palpitations RESPIRATORY: Denies shortness of breath. GASTROINTESTINAL: Denies abdominal pain. Denies nausea or vomiting. HEMATOLOGIC: Denies bleeding disorders. GENITOURINARY: Denies any blood in urine. SKIN: Denies pruitis. Denies rash. PHYSICAL EXAM: VITAL SIGNS: Reviewed. GENERAL: Well-developed in no acute distress. HEENT: Head is normocephalic. Pupils are equal, round. Sclerae anicteric. Mucous membranes of the mouth are moist. Neck supple. No JVD or thyromegaly LUNGS: Respirations even and unlabored. Lungs essentially clear to auscultation bilaterally. HEART: Regular rate and rhythm. S1 and S2 heard. ABDOMEN: Soft. Nondistended. Nontender. EXTREMITIES: Normal range of motion. No clubbing or cyanosis. Peripheral pulses intact. No lower extremity edema NEUROLOGIC: Awake and alert. Oriented x 3. ASSESSMENT: Chest pain, troponins negative 3 History of DVT/PE History of lupus Family history of premature coronary artery disease Morbid obesity PLAN: An acute coronary event has been ruled out Resume home cardiac medications Continue anticoagulation with Xarelto Obtain 2-D echo to assess cardiac structure and function Patient to undergo dobutamine stress echo today. If negative, she may be discharged home from a cardiac standpoint Further recommendations pending patient's course Nurse practitioner note has been reviewed by physician. Signing provider agrees with the documented findings, assessment, and plan of care. Past Medical History Past Medical History: Asthma, Deep Vein Thrombosis (DVT), Pulmonary Embolus (PE) Additional Past Medical History / Comment(s): hx of vertigo, Lupus, PCOS, hx of anemia, hx of iron infusions History of Any Multi-Drug Resistant Organisms: None Reported Past Surgical History: Ablation Additional Past Surgical History / Comment(s): D/C x2 Past Anesthesia/Blood Transfusion Reactions: Motion Sickness Past Psychological History: No Psychological Hx Reported Smoking Status: Never smoker Past Alcohol Use History: Occasional Past Drug Use History: None Reported - Past Family History Mother Family Medical History: No Reported History Medications and Allergies Home Medications Medication Instructions Recorded Confirmed Type Acetaminophen-Codeine 300-30mg 1 tab PO DAILY PRN 01/10/21 04/17/22 History [Tylenol w/codeine #3] Peggy Root Vitamin 1 tab PO DAILY@0800 01/10/21 04/17/22 History Meclizine [Antivert] 12.5 mg PO HS@182901/10/21 04/17/22 History Rivaroxaban [Xarelto] 20 mg PO HS@182901/10/21 04/17/22 History DULoxetine HCL [Cymbalta] 60 mg PO BID@0800,1830 03/19/22 04/17/22 History Furosemide [Lasix] 20 mg PO DAILY@0800 03/19/22 04/17/22 History Gabapentin [Neurontin] 100 mg PO TID 03/19/22 04/17/22 History Phentermine HCl [Adipex-P] 37.5 mg PO DAILY@0800 03/19/22 04/17/22 History Propranolol [Inderal] 20 mg PO BID@0800,1830 03/19/22 04/17/22 History Spironolactone 50 mg PO DAILY@0800 03/19/22 04/17/22 History Mometasone/Formoterol [Dulera 100 2 puff INHALATION RT-BID PRN 04/17/22 04/17/22 History Mcg-5 Mcg Inhaler] Pantoprazole Sodium [Protonix] 20 mg PO HS 04/17/22 04/17/22 History Allergies Allergy/AdvReac Type Severity Reaction Status Date / Time Penicillins Allergy Rash/Hives Verified 04/17/22 19:04 Physical Exam Vitals: Vital Signs Temp Pulse Pulse Resp BP BP Pulse Ox 04/18/22 04:00 97.8 F 84 18 98/67 98 04/18/22 01:40 101 H 16 04/18/22 00:00 97.8 F 101 H 16 107/65 98 04/17/22 22:00 16 142/91 99 04/17/22 21:00 98.0 F 72 20 116/79 98 04/17/22 20:00 64 16 04/17/22 19:00 97.8 F 70 18 118/82 99 04/17/22 18:37 64 18 142/91 99 04/17/22 18:06 76 20 04/17/22 16:33 97.6 F 77 18 116/79 100 04/17/22 12:03 97.4 F L 90 16 114/79 100 Intake and Output 04/17/22 04/18/22 04/18/22 22:59 06:59 14:59 Intake Total 600 Balance 600 Intake: Oral 600 Other: # Voids 1 Weight 140.614 kg Results 04/17/22 12:22 04/17/22 12:22 Cardiac Enzymes 04/17/22 04/17/22 04/17/22 Range/Units 12:22 12:22 18:46 AST 24 (14-36) U/L Troponin I <0.012 <0.012 (0.000-0.034) ng/mL 04/17/22 Range/Units 22:09 AST (14-36) U/L Troponin I <0.012 (0.000-0.034) ng/mL Coagulation 04/17/22 Range/Units 12:22 PT 10.7 (9.0-12.0) sec APTT 25.9 (22.0-30.0) sec CBC 04/17/22 Range/Units 12:22 WBC 8.0 (3.8-10.6) k/uL RBC 4.48 (3.80-5.40) m/uL Hgb 13.1 (11.4-16.0) gm/dL Hct 39.7 (34.0-46.0) % Plt Count 315 (150-450) k/uL Comprehensive Metabolic Panel 04/17/22 Range/Units 12:22 Sodium 136 L (137-145) mmol/L Potassium 4.5 (3.5-5.1) mmol/L Chloride 104 (98-107) mmol/L Carbon Dioxide 22 (22-30) mmol/L BUN 18 H (7-17) mg/dL Creatinine 0.84 (0.52-1.04) mg/dL Glucose 88 (74-99) mg/dL Calcium 9.1 (8.4-10.2) mg/dL AST 24 (14-36) U/L ALT 26 (4-34) U/L Alkaline Phosphatase 60 (38-126) U/L Total Protein 6.9 (6.3-8.2) g/dL Albumin 4.1 (3.5-5.0) g/dL Current Medications Generic Name Dose Route Start Last Admin Trade Name Freq PRN Reason Stop Dose Admin Acetaminophen/Codeine Phosphate 1 each 04/17/22 20:47 04/18/22 02:17 Acetaminophen-Codeine 300-30mg Tab PO 1 each DAILY PRN Administration Pain Aspirin 81 mg 04/18/22 09:00 Aspirin 81 Mg PO DAILY PIPE Budesonide/Formoterol Fumarate 2 puff 04/17/22 20:47 Symbicort 80-4.5 Mcg Inhaler INHALATION RT-BID PRN Shortness Of Breath Duloxetine HCl 60 mg 04/17/22 21:48 04/17/22 22:31 Duloxetine Hcl 60 Mg Capsule.Dr PO 60 mg BID PIPE Administration Furosemide 20 mg 04/18/22 08:00 Furosemide 20 Mg Tab PO DAILY@0800 PIPE Gabapentin 100 mg 04/17/22 22:00 04/17/22 22:30 Gabapentin 100 Mg Cap PO 100 mg TID PIPE Administration Nitroglycerin 0.5 inch 04/17/22 18:45 04/18/22 00:20 Nitroglycerin Oint 1 Inch/Gm Packet TOPICAL 0.5 inch Q6HR PIPE Administration Nitroglycerin 0.4 mg 04/17/22 18:29 Nitroglycerin Sl Tabs 0.4 Mg Tab SUBLINGUAL Q5M PRN Chest Pain Pantoprazole Sodium 40 mg 04/17/22 21:00 04/17/22 22:29 Pantoprazole 40 Mg Tablet PO 40 mg HS [facility] Administration Propranolol HCl 20 mg 04/17/22 21:49 04/17/22 22:30 Propranolol 20 Mg Tab PO 20 mg AC-BID PIPE Administration Rivaroxaban 20 mg 04/17/22 21:47 04/17/22 22:30 Rivaroxaban 20 Mg Tab PO 20 mg HS PIPE Administration Protocol Spironolactone 50 mg 04/18/22 08:00 Spironolactone 25 Mg Tab PO DAILY@0800 [facility] Intake and Output 04/17/22 04/18/22 04/18/22 22:59 06:59 14:59 Intake Total 600 Balance 600 Intake: Oral 600 Other: # Voids 1 Weight 140.614 kg 04/17/22 12:22 04/17/22 12:22
[2022-04-18] MEDS ORDERED: DOBUTamine DRIP for NUC MED 500 MG/250 ML BAG IV ONE (11:30)
--- NOTE | 2022-04-18 12:43 | CA ---
Dobutamine Stress Echocardiogram Report Katarina De Leon Age: 41 Gender: F : 1980 Exam Date: 04/18/2022 11:11 Exam Location: [facility] Ordering Physician: Tiarra Norwood Referring Physician: [id number] Gilbret Supervisor [employer]: [employer] Technologist: Ht (in): 68 Wt (lb): 310 Procedure CPT: Indication: CP ICD-9 Codes: Rhythm: Patient History: Cardiac Medications: Medications in past 24 hours: Contrast: Lumason Total Dose (mL): Stress Results Protocol: Dobutamine Peak Dose (???g/kg/min): 40 Duration (min:sec): Atropine:(mg) Target HR: 154 Double Product: 10778 Resting HR: 76 Resting BP: 120 / 69 Peak HR: 155 Peak BP: 185 / 57 Max Predicted HR: 181 86 % Max Predicted HR Stress Summary: BP Response: Reason for Termination: Exceeded target heart rate (85% max predicted) Cardiac Symptoms: Test terminated after reaching target heart rate (85% max predicted) ECG Analysis Resting EKG: Stress EKG: Arrhythmia: Echo Analysis Base Echo Analysis: Low Echo Anaylsis: Peak Echo Analysis: Recovery Echo: MEASUREMENTS (Male/Female) Normal Values CONCLUSIONS Normal EKG in response to dobutamine Normal echocardiogram in response to dobutamine Essentially normal dobutamine stress echocardiogram Dr. José Miguel Najera MD (Electronically Signed) Final Date: 18 April 2022 12:43
[2022-04-18] MEDS: DULoxetine HCL 60 MG CAPSULE.DR PO SCH (13:24)
[2022-04-18] MEDS: GABAPENTIN 100 MG CAP PO SCH (13:24)
[2022-04-18 16:03] VITALS: PULSE 84
[2022-04-18] MEDS ORDERED: RIVAROXABAN 20 MG TAB PO SCH (18:30)
--- NOTE | 2022-04-19 15:57 | CA ---
Transthoracic Echo Report Name: Katarina De Leon Age: 41 Gender: F : 1980 Exam Date: 04/18/2022 11:01 Exam Location: [facility] Ht (in): 68 Wt (lb): 310 Ordering Physician: Tiarra Norwood Attending/Referring Phys: [id number], Enma Housing Relocation Yasemin Humphreys RDCS Procedure CPT: Indications: CP, LV function Cardiac Hx: Technical Quality: Technically difficult study Contrast 1: Lumason Total Dose (mL): 5 Contrast 2: Total Dose (mL): MEASUREMENTS (Male / Female) Normal Values 2D ECHO LV Diastolic Diameter PLAX 3.9 cm 4.2 - 5.9 / 3.9 - 5.3 cm LV Systolic Diameter PLAX 3.1 cm IVS Diastolic Thickness 1.4 cm 0.6 - 1.0 / 0.6 - 0.9 cm LVPW Diastolic Thickness 1.3 cm 0.6 - 1.0 / 0.6 - 0.9 cm LV Relative Wall Thickness 0.7 RV Internal Dim ED PLAX 3.0 cm M-MODE Aortic Root Diameter MM 2.8 cm DOPPLER AV Peak Velocity 96.3 cm/s AV Peak Gradient 3.7 mmHg LVOT Peak Velocity 88.5 cm/s LVOT Peak Gradient 3.1 mmHg MV Area PHT 3.5 cm??? Mitral E Point Velocity 58.5 cm/s Mitral A Point Velocity 53.7 cm/s Mitral E to A Ratio 1.1 MV Deceleration Time 216.2 ms TR Peak Velocity 138.9 cm/s TR Peak Gradient 7.7 mmHg Right Ventricular Systolic Press 12.6 mmHg FINDINGS Left Ventricle Moderately increased left ventricular wall thickness. Normal left ventricular systolic function with no obvious regional wall motion abnormalities. Left ventricular ejection fraction is estimated at 55-60 %. Right Ventricle Normal right ventricular size and function. Right ventricular systolic pressure within normal limits. Right Atrium Right atrium not well visualized. Left Atrium Left atrium not well visualized. Mitral Valve No mitral stenosis. Mild mitral regurgitation. Aortic Valve No aortic valve stenosis or regurgitation. Tricuspid Valve Structurally normal tricuspid valve. Mild tricuspid regurgitation. Pulmonic Valve Trace pulmonic regurgitation. Pericardium No pericardial effusion. Aorta Normal size aortic root and proximal ascending aorta. CONCLUSIONS Technically very difficult study for interpretation Normal left ventricular systolic function Normal right ventricular systolic function Poorly visualized intracardiac valves Previewed by: Dr. José Miguel Najera MD (Electronically Signed) Final Date: 19 April 2022 15:56
== END 2022-04-18 15:58 | disposition home or self-care (01) ==
LOC: EC 11:33 → 3SCARD 18:31
PROVIDERS: ADMIT Family Medicine; ATTEND Family Medicine
DX: R07.9 Chest pain, unspecified (principal); J45.909 Unspecified asthma, uncomplicated; M32.9 Systemic lupus erythematosus, unspecified; D64.9 Anemia, unspecified; E28.2 Polycystic ovarian syndrome; I08.1 Rheumatic disorders of both mitral and tricuspid valves; I37.1 Nonrheumatic pulmonary valve insufficiency; Z79.01 Long term (current) use of anticoagulants; Z82.49 Family history of ischemic heart disease and other diseases of the circulatory system; Z79.899 Other long term (current) drug therapy; Z88.0 Allergy status to penicillin; Z86.718 Personal history of other venous thrombosis and embolism; Z86.711 Personal history of pulmonary embolism
CPT/HCPCS: 36415; 93005; 93351; 85379; 83880; 80061; 80053; 83735; 84484; 85025; 85610; 85730; 71046; G0378 ×2; C8929; J1250; Q9950; 93306; 99285

== ENCOUNTER 2022-06-09 15:52 | Emergency (ER) | payer OTHER ==
[2022-06-09 16:40] VITALS: TEMP 97.5
[2022-06-09] MEDS ORDERED: LIDOCAINE 1% INJ 10MG/ML (30 ML VIAL-PF) SQ ONE (17:06)
--- NOTE | 2022-06-09 17:34 | ED ---
Wound/Laceration HPI - General Chief Complaint: Wound/Laceration Stated Complaint: Finger injury Time Seen by Provider: 06/09/22 16:54 Source: patient, RN notes reviewed Mode of arrival: ambulatory - History of Present Illness Initial Comments: Patient is a pleasant 41-year-old female presenting to the emergency room after accidentally cutting her left palm with a glass dish while she was washing dishes earlier today. She is on blood thinners and consequently had difficulty getting the wound to stop bleeding however with pressure at the wound has stopped bleeding. She denies any range of motion impairment numbness or tingling. She denies any concerns for contamination. She reports that her tetanus vaccination is up-to-date. She denies any concern regarding foreign body in the wound or nail injury. She is on Xarelto for a history of DVTs and pulmonary emboli secondary to lupus hypercoagulable state. In addition to her lupus she has a past medical history significant for asthma, PCOS, anemia and vertigo. - Related Data Home Medications Medication Instructions Recorded Confirmed Acetaminophen-Codeine 300-30mg 1 tab PO DAILY PRN 01/10/21 04/17/22 [Tylenol w/codeine #3] Peggy Root Vitamin 1 tab PO DAILY@79901/10/21 04/17/22 Meclizine [Antivert] 12.5 mg PO HS@182901/10/21 04/17/22 Rivaroxaban [Xarelto] 20 mg PO HS@182901/10/21 04/17/22 DULoxetine HCL [Cymbalta] 60 mg PO BID@799,182903/19/22 04/17/22 Furosemide [Lasix] 20 mg PO DAILY@79903/19/22 04/17/22 Gabapentin [Neurontin] 100 mg PO TID 03/19/22 04/17/22 Phentermine HCl [Adipex-P] 37.5 mg PO DAILY@79903/19/22 04/17/22 Propranolol [Inderal] 20 mg PO BID@08,182903/19/22 04/17/22 Spironolactone 50 mg PO DAILY@79903/19/22 04/17/22 Mometasone/Formoterol [Dulera 100 2 puff INHALATION RT-BID PRN 04/17/22 04/17/22 Mcg-5 Mcg Inhaler] Pantoprazole Sodium [Protonix] 20 mg PO HS 04/17/22 04/17/22 Previous Rx's Medication Instructions Recorded Aspirin 81 mg PO DAILY tab 04/18/22 Allergies Allergy/AdvReac Type Severity Reaction Status Date / Time Penicillins Allergy Rash/Hives Verified 06/09/22 16:40 Review of Systems ROS Statement: Those systems with pertinent positive or pertinent negative responses have been documented in the HPI. ROS Other: All systems not noted in ROS Statement are negative. Past Medical History Past Medical History: Asthma, Deep Vein Thrombosis (DVT), Pulmonary Embolus (PE) Additional Past Medical History / Comment(s): hx of vertigo, Lupus, PCOS, hx of anemia, hx of iron infusions History of Any Multi-Drug Resistant Organisms: None Reported Past Surgical History: Ablation Additional Past Surgical History / Comment(s): D/C x2 Past Anesthesia/Blood Transfusion Reactions: Motion Sickness Past Psychological History: No Psychological Hx Reported Smoking Status: Never smoker Past Alcohol Use History: Occasional Past Drug Use History: None Reported - Past Family History Mother Family Medical History: No Reported History General Exam General appearance: alert, in no apparent distress Head exam: Present: atraumatic, normocephalic, normal inspection Eye exam: Present: normal appearance, PERRL, EOMI. Absent: scleral icterus, conjunctival injection, periorbital swelling ENT exam: Present: normal exam, mucous membranes moist Neck exam: Present: normal inspection, full ROM Respiratory exam: Absent: respiratory distress, accessory muscle use Cardiovascular Exam: Present: regular rate GI/Abdominal exam: Absent: distended Extremities exam: Absent: pedal edema, joint swelling Left Hand Wrist exam: Present: full ROM, tenderness, laceration (Left thumb adjacent to but not invading the nailbed). Absent: deformity, dislocation, amputation, nail avulsion Back exam: Present: normal inspection, full ROM Neurological exam: Present: alert, oriented X3, CN II-XII intact Psychiatric exam: Present: normal affect, normal mood Skin exam: Present: other (Laceration as indicated above) Course Vital Signs 06/09/22 06/09/22 16:37 18:08 Temperature 97.5 F L Pulse Rate 80 76 Respiratory 20 15 Rate Blood Pressure 108/70 100/66 O2 Sat by Pulse 98 96 Oximetry Procedures - Laceration Laceration #1 Consent Obtained: verbal consent Indication: laceration Site: hand (thumb) Size (cm): 1 (1.5) Description: linear Depth: simple, single layer Anesthetic Used: lidocaine 1% Anesthesia Technique: local infiltration Pre-repair: wound explored, irrigated extensively Type of Sutures: nylon Size of Sutures: 4-0 Number of Sutures: 2 Technique: simple, interrupted Patient Tolerated Procedure: well, no complications Medical Decision Making - Medical Decision Making 41-year-old female presenting with a laceration to left thumb with updated tetanus without concern for foreign body or bone injury no indication for diagnostic imaging or laboratory studies. No indication for IV antibiotics. Tetanus up-to-date. Will plan for proceeding with laceration closure. Patient tolerated laceration closure without complications. No indication for oral antibiotics. Wound care discussed with patient along with follow-up need for suture removal. Will discharge home in stable condition with sutures and dressing intact to laceration to left thumb. Return parameters to the emergency room discussed. Case discussed with Dr. Good. Disposition Clinical Impression: Laceration Disposition: HOME SELF-CARE Condition: Stable Instructions (If sedation given, give patient instructions): Care For Your Stitches (ED), Laceration (ED) Additional Instructions: Please keep wound clean and dry. Monitor for signs and symptoms of infection and seek medical attention as appropriate if symptoms occur. Please follow-up with your primary care provider. May return to ER or follow up with your PCP for suture removal in 7-10 days. Please return to the Emergency Department if symptoms worsen or any other concerns. Is patient prescribed a controlled substance at d/c from ED?: No Referrals: Alex Macias MD [Primary Care Provider] - 1-2 days Time of Disposition: 17:33
[2022-06-09 18:09] VITALS: BP 100/66; PULSE 76; RESP 15
== END 2022-06-09 18:09 | disposition home or self-care (01) ==
LOC: EC 15:52
DX: S61.012A Laceration without foreign body of left thumb without damage to nail, initial encounter (principal); J45.909 Unspecified asthma, uncomplicated; Z86.718 Personal history of other venous thrombosis and embolism; Z88.0 Allergy status to penicillin; Z79.899 Other long term (current) drug therapy; W25.XXXA Contact with sharp glass, initial encounter
CPT/HCPCS: 99282; 12001; J2001

== ENCOUNTER 2022-10-28 16:52 | Inpatient (IN) | payer MEDICARE, OTHER ==
[2022-10-28] MEDS ORDERED: NITROGLYCERIN OINT 1 INCH/GM PACKET TOPICAL STA (17:16)
[2022-10-28 17:29] LABS: Basophils % (A) 0 %; Eosinophils # (A) 0.3 k/uL (0-0.7); Eosinophils % (A) 3 %; HCT 39.1 % (34.0-46.0); HGB 13.5 gm/dL (11.4-16.0); Lymphocytes # (A) 2.4 k/uL (1.0-4.8); Lymphocytes % (A) 26 %; MCH 30.9 pg (25.0-35.0); MCHC 34.5 g/dL (31.0-37.0); MCV 89.6 fL (80.0-100.0); Monocytes # (A) 0.4 k/uL (0-1.0); Monocytes % (A) 4 %; Neutrophils % (A) 65 %; Platelet Count 266 k/uL (150-450); RBC 4.36 m/uL (3.80-5.40); WBC 9.1 k/uL (3.8-10.6)
--- NOTE | 2022-10-28 17:29 | ED ---
General Adult HPI - General Stated complaint: Chest Pain Time Seen by Provider: 10/28/22 16:55 Source: patient, RN notes reviewed, old records reviewed - History of Present Illness Initial comments: This is a 42-year-old female who presents emergency Department complaining of chest pain. Patient states she had an episode this morning that lasted about half an hour and then it went away. Patient states this afternoon she had another episode and it didn't go away she called EMS when they arrived they gave her nitroglycerin and that took it almost completely away. Patient also received an aspirin in route. Patient states she also was mildly short of breath and she had pain running down the left arm. Patient states she has a very strong family history. Patient denies diabetes hypertension high cholesterol or smoking history. She denies any recent fever chills or cough per patient denies any other symptoms at this time - Related Data Home Medications Medication Instructions Recorded Confirmed Peggy Root Vitamin 1 tab PO DAILY@0800 01/10/21 10/28/22 Meclizine [Antivert] 12.5 mg PO DAILY@0 01/10/21 10/28/22 Rivaroxaban [Xarelto] 20 mg PO DAILY@1830 01/10/21 10/28/22 DULoxetine HCL [Cymbalta] 60 mg PO BID@0800,182903/19/22 10/28/22 Propranolol [Inderal] 20 mg PO BID@0800,0 03/19/22 10/28/22 Spironolactone 50 mg PO DAILY 03/19/22 10/28/22 Pantoprazole Sodium [Protonix] 20 mg PO DAILY 04/17/22 10/28/22 Dulaglutide [Trulicity] 1.5 mg SQ MO 07/09/22 10/28/22 busPIRone HCL 15 mg PO BID 10/28/22 10/28/22 Allergies Allergy/AdvReac Type Severity Reaction Status Date / Time Penicillins Allergy Rash/Hives Verified 10/28/22 19:40 milk AdvReac Nausea & Verified 10/28/22 19:40 Vomiting Review of Systems ROS Statement: Those systems with pertinent positive or pertinent negative responses have been documented in the HPI. ROS Other: All systems not noted in ROS Statement are negative. Past Medical History Past Medical History: Asthma, Deep Vein Thrombosis (DVT), Pulmonary Embolus (PE) Additional Past Medical History / Comment(s): hx of vertigo, Lupus, PCOS, hx of anemia, hx of iron infusions History of Any Multi-Drug Resistant Organisms: None Reported Past Surgical History: Ablation Additional Past Surgical History / Comment(s): D/C x2 Past Anesthesia/Blood Transfusion Reactions: Motion Sickness Smoking Status: Never smoker - Past Family History Mother Family Medical History: No Reported History General Exam - General Exam Comments Initial Comments: GENERAL: Patient is well-developed and well-nourished. Patient is nontoxic and well- hydrated and is in mild distress. ENT: Neck is soft and supple. No significant lymphadenopathy is noted. Oropharynx is clear. Moist mucous membranes. Neck has full range of motion without eliciting any pain. EYES: The sclera were anicteric and conjunctiva were pink and moist. Extraocular movements were intact and pupils were equal round and reactive to light. Eyelid s were unremarkable. PULMONARY: Unlabored respirations. Good breath sounds bilaterally. No audible rales rhonchi or wheezing was noted. CARDIOVASCULAR: There is a regular rate and rhythm without any murmurs gallops or rubs. ABDOMEN: Soft and nontender with normal bowel sounds. SKIN: Skin is clear with no lesions or rashes and otherwise unremarkable. NEUROLOGIC: Patient is alert and oriented x3. Cranial nerves II through XII are grossly intact. Motor and sensory are also intact. Normal speech, volume and content. Symmetrical smile. MUSCULOSKELETAL: Normal extremities with adequate strength and full range of motion. No lower extremity swelling or edema. No calf tenderness. LYMPHATICS: No significant lymphadenopathy is noted PSYCHIATRIC: Normal psychiatric evaluation. Course Vital Signs 10/28/22 17:29 Temperature 98.6 F Pulse Rate 80 Respiratory 18 Rate Blood Pressure 132/78 O2 Sat by Pulse 99 Oximetry Medical Decision Making - Medical Decision Making EKG was interpreted by myself shows a sinus rhythm at 85 bpm GA interval 162 QRS 102 QT interval 359 QTC 411. Patient's EKG shows no ST segment elevation or depression Was pt. sent in by a medical professional or institution (, PA, PHARMACY PICKING TECH, urgent care, hospital, or care home...) When possible be specific @ -No Did you speak to anyone other than the patient for history (EMS, parent, family, police, friend...)? What history was obtained from this source @ -No Did you review nursing and triage notes (agree or disagree)? Why? @ -I reviewed and agree with nursing and triage notes Were old charts reviewed (outside hosp., previous admission, EMS record, old EKG, old radiological studies, urgent care reports/EKG's, care home records)? Report findings @ -Review prior charts on this patient as well as prior laboratory work Differential Diagnosis (chest pain, altered mental status, abdominal pain women, abdominal pain men, vaginal bleeding, weakness, fever, dyspnea, syncope, headache, dizziness, GI bleed, back pain, seizure, CVA, palpatations, mental health, musculoskeletal)? @ -Differential Chest Pain: Stable Angina, Unstable Angina, STEMI, NSTEMI Aortic Dissection, Pneumothorax, Musculoskeletal, Esophageal Spasm GERD, Cholecystitis, Pancreatitis, Zoster, this is not meant to be an all-inclusive list. EKG interpreted by me (3pts min.). @ -As above X-rays interpreted by me (1pt min.). @ -Shows interpreted by myself is in no acute abnormality. CT interpreted by me (1pt min.). @ -None done U/S interpreted by me (1pt. min.). @ -None done What testing was considered but not performed or refused? (CT, X-rays, U/S, labs)? Why? @ -None What meds were considered but not given or refused? Why? @ -None Did you discuss the management of the patient with other professionals (professionals i.e. , PA, PHARMACY PICKING TECH, lab, RT, psych nurse, mental health social worker, scaffold builder, teacher, dispatch officer, case management manager)? Give summary @ -I spoke with Alex Macias about all the results of the case and he agreed to admit the patient. Was smoking cessation discussed for >3mins.? @ -No Was critical care preformed (if so, how long)? @ -No Were there social determinants of health that impacted care today? How? (Homelessness, low income, unemployed, alcoholism, drug addiction, transportation, low edu. Level, literacy, decrease access to med. care, halfway, rehab)? @ -No Was there de-escalation of care discussed even if they declined (Discuss DNR or withdrawal of care, Hospice)? DNR status @ -No What co-morbidities impacted this encounter? (DM, HTN, Smoking, COPD, CAD, Cancer, CVA, ARF, Chemo, Hep., AIDS, mental health diagnosis, sleep apnea, morbid obesity)? @ -None Was patient admitted / discharged? Hospital course, mention meds given and route, prescriptions, significant lab abnormalities, going to OR and other pertinent info. @ -Patient had nitroglycerin on the way and I also gave patient Nitropaste in the emergency department. Patient states the initial nitroglycerin was removed all of her pain in the Nitropaste seem to limit pain completely. Patient was given an aspirin in route as well. Lab work showed no acute abnormality troponin was normal. Chest x-ray is normal. I spoke with Alex Macias he wanted the patient and decided the patient was being orders and consult cardiol ogy Undiagnosed new problem with uncertain prognosis? @ -No Drug Therapy requiring intensive monitoring for toxicity (Heparin, Nitro, Insulin, Cardizem)? @ -No Were any procedures done? @ -No Diagnosis/symptom? @ -Unstable angina Acute, or Chronic, or Acute on Chronic? @ -Acute Uncomplicated (without systemic symptoms) or Complicated (systemic symptoms)? @ -Complicated Side effects of treatment? @ -No Exacerbation, Progression, or Severe Exacerbation? @ -No Poses a threat to life or bodily function? How? (Chest pain, [place], [place], pneumonia, PE, COPD, DKA, ARF, appy, cholecystitis, CVA, Diverticulitis, Homicidal, Suicidal, threat to staff... and all critical care pts) @ -Yes this could lead to FL which can lead to hypoxia and end organ dysfunction - Lab Data Result diagrams: 10/28/22 16:52 10/28/22 16:52 Lab Results 10/28/22 10/28/22 10/28/22 Range/Units 16:52 16:52 16:52 WBC 9.1 (3.8-10.6) k/uL RBC 4.36 (3.80-5.40) m/uL Hgb 13.5 (11.4-16.0) gm/dL Hct 39.1 (34.0-46.0) % MCV 89.6 (80.0-100.0) fL MCH 30.9 (25.0-35.0) pg MCHC 34.5 (31.0-37.0) g/dL RDW 14.0 (11.5-15.5) % Plt Count 266 (150-450) k/uL MPV 8.0 Neutrophils % 65 % Lymphocytes % 26 % Monocytes % 4 % Eosinophils % 3 % Basophils % 0 % Neutrophils # 6.0 (1.3-7.7) k/uL Lymphocytes # 2.4 (1.0-4.8) k/uL Monocytes # 0.4 (0-1.0) k/uL Eosinophils # 0.3 (0-0.7) k/uL Basophils # 0.0 (0-0.2) k/uL PT 10.5 (9.0-12.0) sec INR 1.0 (<1.2) APTT 24.4 (22.0-30.0) sec Sodium 136 L (137-145) mmol/L Potassium 4.3 (3.5-5.1) mmol/L Chloride 108 H (98-107) mmol/L Carbon Dioxide 21 L (22-30) mmol/L Anion Gap 7 mmol/L BUN 13 (7-17) mg/dL Creatinine 0.73 (0.52-1.04) mg/dL Est GFR (CKD-EPI)AfAm >90 (>60 ml/min/1.73 sqM) Est GFR (CKD-EPI)NonAf >90 (>60 ml/min/1.73 sqM) Glucose 112 H (74-99) mg/dL Calcium 7.9 L (8.4-10.2) mg/dL Magnesium 1.9 (1.6-2.3) mg/dL Total Bilirubin 0.6 (0.2-1.3) mg/dL AST 28 (14-36) U/L ALT 25 (4-34) U/L Alkaline Phosphatase 48 (38-126) U/L Troponin I (0.000-0.034) ng/mL Total Protein 6.5 (6.3-8.2) g/dL Albumin 3.6 (3.5-5.0) g/dL 10/28/22 Range/Units 16:52 WBC (3.8-10.6) k/uL RBC (3.80-5.40) m/uL Hgb (11.4-16.0) gm/dL Hct (34.0-46.0) % MCV (80.0-100.0) fL MCH (25.0-35.0) pg MCHC (31.0-37.0) g/dL RDW (11.5-15.5) % Plt Count (150-450) k/uL MPV Neutrophils % % Lymphocytes % % Monocytes % % Eosinophils % % Basophils % % Neutrophils # (1.3-7.7) k/uL Lymphocytes # (1.0-4.8) k/uL Monocytes # (0-1.0) k/uL Eosinophils # (0-0.7) k/uL Basophils # (0-0.2) k/uL PT (9.0-12.0) sec INR (<1.2) APTT (22.0-30.0) sec Sodium (137-145) mmol/L Potassium (3.5-5.1) mmol/L Chloride (98-107) mmol/L Carbon Dioxide (22-30) mmol/L Anion Gap mmol/L BUN (7-17) mg/dL Creatinine (0.52-1.04) mg/dL Est GFR (CKD-EPI)AfAm (>60 ml/min/1.73 sqM) Est GFR (CKD-EPI)NonAf (>60 ml/min/1.73 sqM) Glucose (74-99) mg/dL Calcium (8.4-10.2) mg/dL Magnesium (1.6-2.3) mg/dL Total Bilirubin (0.2-1.3) mg/dL AST (14-36) U/L ALT (4-34) U/L Alkaline Phosphatase (38-126) U/L Troponin I <0.012 (0.000-0.034) ng/mL Total Protein (6.3-8.2) g/dL Albumin (3.5-5.0) g/dL Disposition Clinical Impression: Chest pain Disposition: ADMITTED IP TO THIS HOSP Referrals: Alex Macias MD [Primary Care Provider] - 1-2 days Time of Disposition: 20:02
[2022-10-28 17:39] LABS: Partial Thromboplastin Time 24.4 sec (22.0-30.0); Prothrombin Time 10.5 sec (9.0-12.0)
[2022-10-28 17:49] LABS: ALT 25 U/L (4-34); AST 28 U/L (14-36); African American GFR (CKD) >90 (>60 ml/min/1.73 sqM); Albumin 3.6 g/dL (3.5-5.0); Alkaline Phosphatase 48 U/L (38-126); Anion Gap 7 mmol/L; Blood Urea Nitrogen 13 mg/dL (7-17); Calcium 7.9 mg/dL (8.4-10.2); Carbon Dioxide 21 mmol/L (22-30); Chloride 108 mmol/L (98-107); Glucose 112 mg/dL (74-99); Magnesium 1.9 mg/dL (1.6-2.3); Non-African American GFR(CKD) >90 (>60 ml/min/1.73 sqM); Sodium 136 mmol/L (137-145); Total Bilirubin 0.6 mg/dL (0.2-1.3); Total Protein 6.5 g/dL (6.3-8.2)
[2022-10-28 18:03] LABS: Potassium 4.3 mmol/L (3.5-5.1)
--- NOTE | 2022-10-28 18:25 | XR ---
EXAMINATION TYPE: XR chest 2V DATE OF EXAM: 10/28/2022 6:19 PM COMPARISON: Chest radiographs from 04/17/2022 TECHNIQUE: XR chest 2V Frontal and lateral views of the chest. CLINICAL INDICATION:Female, 42 years old with history of Chest Pain; FINDINGS: Lungs/Pleura: There is no evidence of pleural effusion, focal consolidation, or pneumothorax. Pulmonary vascularity: Unremarkable. Heart/mediastinum: Cardiomediastinal silhouette is unremarkable. Lucency over the heart redemonstrat ed. Musculoskeletal: No acute osseous pathology. IMPRESSION: 1. No acute cardiopulmonary disease/process. 2. Large hiatal hernia.
[2022-10-28] MEDS ORDERED: NITROGLYCERIN SL TABS 0.4 MG TAB SUBLINGUAL PRN (20:02)
[2022-10-29] MEDS: NITROGLYCERIN OINT 1 INCH/GM PACKET TOPICAL SCH ×2 (00:19→06:06)
[2022-10-29] MEDS ORDERED: ACETAMINOPHEN TAB 500 MG TAB PO PRN (00:20)
[2022-10-29] MEDS: busPIRone HCl 5 MG TAB PO SCH ×2 (00:43→08:36)
--- NOTE | 2022-10-29 01:34 | HP ---
HISTORY AND PHYSICAL HISTORY OF PRESENT ILLNESS: This is a 42-year-old white female who came to the hospital this morning about half an hour. She had episode of chest pain. It came and it went. They gave her nitroglycerin, taken almost completely away. She had aspirin en route. She is mildly short of breath. She had pain running down the left arm. She has a very strong family history of heart disease. Denies diabetes, hypertension, hypercholesterolemia, or smoking. Denies any fever, chills. Chest x-ray shows large hiatal hernia. D-dimer is pending. HOME MEDICINES: 1. Antivert 12.5 daily. 2. Xarelto 20 mg daily. 3. Cymbalta 60 mg b.i.d. 4. Inderal 20 b.i.d. 5. Spironolactone 50 daily. 6. Pantoprazole 20 daily. 7. Trulicity 1.5 subcu weekly. 8. BuSpar 15 b.i.d. ALLERGIES: Penicillin. REVIEW OF SYSTEMS: A 14-point review of systems otherwise negative. Negative for hemoptysis, tachypnea, tachycardia. PAST MEDICAL HISTORY: Asthma, DVT, PE, history of vertigo, lupus, PCOS, history of anemia. Does not smoke. FAMILY HISTORY: Mother otherwise negative. PHYSICAL EXAMINATION: GENERAL: Well developed, well nourished, nontoxic, well hydrated, in mild distress. HEENT: Within normal limits. Pupils equal, round, and reactive. PULMONARY: Clear breath sounds bilaterally. CARDIOVASCULAR: Regular rate and rhythm. ABDOMEN: Nontender, normal bowel sounds. SKIN: Warm and dry. NEUROLOGIC: Cranial nerves intact. MUSCULOSKELETAL: Full range of motion. LYMPH NODES: No lymphadenopathy. PSYCH: Fair mood and affect. VITAL SIGNS: Temperature 98.5, pulse 85 to 90, respiratory rate 16 to 18, blood pressure 132/88, and O2 99. IMPRESSION: Atypical chest pain, possible angina. Troponins are negative x2. She has large esophageal hiatal hernia, suspect GERD as possible cause, possible asthma or COPD. Wait for D-dimer. Continue home medicines. Cardiology consult for serial troponins. Prognosis guarded. MMODL / IJN: [id number] /
[2022-10-29] MEDS ORDERED: PANTOPRAZOLE SODIUM 40 MG GRANULE PKT PO SCH (07:30)
[2022-10-29] MEDS ORDERED: DULoxetine HCL 60 MG CAPSULE.DR PO SCH (08:00)
[2022-10-29] MEDS ORDERED: PROPRANOLOL 20 MG TAB PO SCH (08:00)
[2022-10-29] MEDS ORDERED: ASPIRIN 325 MG TAB PO SCH (09:00)
[2022-10-29] MEDS ORDERED: SPIRONOLACTONE 25 MG TAB PO SCH (09:00)
[2022-10-29 10:32] VITALS: TEMP 97.4
--- NOTE | 2022-10-29 11:11 | P.CRDCN ---
History of Present Illness History of present illness: HISTORY OF PRESENT ILLNESS: This is a 42-year-old female with a past medical history significant for DVT/PE on Xarelto, lupus, anxiety, and former nicotine dependence. Patient does not follow with a recycling specialist. We have been asked to see the patient in consultation for chest pain. Patient examined at the bedside. Patient states she is recently and having alot of martial issues. She states her is an alcoholic and she is under a lot of stress currently. The patient was hospitalized in April 2022 for chest pain. She underwent a dobutamine stress test at that time which was negative for ischemia and she was discharged home in stable condition. She has not followed with a recycling specialist since that time. She states since April she has not had any further episodes of chest pain. She states however on Thursday morning she woke up with what felt like heartburn symptoms. She states that she ate some bread and took Pepto-Bismol. She states the pain resolved and then later on in the day she began having chest pain and described it as though someone was sitting on her chest. She states the pain lasted about 30 minutes and then went away on its own. She states she was arguing with her and went to pick him up from his mother's house. She states when she got over there her and his mother were fighting and she was trying to resolve the fight. She states that her chest pain intensified at that time. She reports having some discomfort in her left arm. She called EMS. She received sublingual nitro in route to the hospital which resolved her pain. At the time of examination she denies any further episodes of chest pain or pressure. The patient reports a family history of premature coronary artery disease and states her dad at the age of 55 from heart attack. * EKG reveals sinus mechanism with no signs of acute ischemia * Chest xray negative for acute process. Large hiatal hernia noted. * Laboratory data: WBC 9.1. Hemoglobin 13.5. Platelet count 266. D-dimer 0.17. Sodium 136. Potassium 4.3. BUN 13. Creatinine 0.73. Troponin negative 3. * Current home cardiac medications include Xarelto 20 mg daily, spironolactone 50 mg daily, propanolol 20 mg twice a day * Most recent echocardiogram obtained in April 2022 revealing ejection fraction 55-60%, mild MR, mild TR * Patient underwent dobutamine stress test in April 2022 which was negative for ischemia REVIEW OF SYSTEMS: At the time of my exam: CONSTITUTIONAL: Denies fever or chills. HEENT: Denies blurred vision, vision changes, or eye pain. Denies hemoptysis CARDIOVASCULAR: Denies chest pain. Denies orthopnea. Denies PND. Denies palpitations RESPIRATORY: Denies shortness of breath. GASTROINTESTINAL: Denies abdominal pain. Denies nausea or vomiting. HEMATOLOGIC: Denies bleeding disorders. GENITOURINARY: Denies any blood in urine. SKIN: Denies pruitis. Denies rash. PHYSICAL EXAM: VITAL SIGNS: Reviewed. GENERAL: Well-developed in no acute distress. HEENT: Head is normocephalic. Pupils are equal, round. Sclerae anicteric. Mucous membranes of the mouth are moist. Neck supple. No JVD or thyromegaly LUNGS: Respirations even and unlabored. Lungs essentially clear to auscultation bilaterally. HEART: Regular rate and rhythm. S1 and S2 heard. ABDOMEN: Soft. Nondistended. Nontender. EXTREMITIES: Normal range of motion. No clubbing or cyanosis. Peripheral pulses intact. No lower extremity edema NEUROLOGIC: Awake and alert. Oriented x 3. ASSESSMENT: Chest pain, noncardiac, troponin negative 3, with negative dobutamine stress test in 04/2022 History of DVT/PE, anticoagulated with Xarelto Lupus Anxiety Former nicotine dependence Family history of premature coronary artery disease PLAN: An acute coronary event has been ruled out Resume home cardiac medications Patient may be discharged home today from a cardiac standpoint Recommend outpatient follow up Nurse practitioner note has been reviewed by physician. Signing provider agrees with the documented findings, assessment, and plan of care. Past Medical History Past Medical History: Asthma, Deep Vein Thrombosis (DVT), Pulmonary Embolus (PE) Additional Past Medical History / Comment(s): hx of vertigo, Lupus, PCOS, hx of anemia, hx of iron infusions, right leg DVT and "blood clots in chest" History of Any Multi-Drug Resistant Organisms: None Reported Past Surgical History: Ablation Additional Past Surgical History / Comment(s): D/C x2 Past Anesthesia/Blood Transfusion Reactions: Motion Sickness Past Psychological History: Anxiety Smoking Status: Former smoker Past Alcohol Use History: None Reported, Occasional Additional Past Alcohol Use History / Comment(s): no alcohol use or tobacco use currently Past Drug Use History: None Reported - Past Family History Mother Family Medical History: No Reported History Medications and Allergies Home Medications Medication Instructions Recorded Confirmed Type Peggy Root Vitamin 1 tab PO DAILY@0800 01/10/21 10/28/22 History Meclizine [Antivert] 12.5 mg PO DAILY@182901/10/21 10/28/22 History Rivaroxaban [Xarelto] 20 mg PO DAILY@182901/10/21 10/28/22 History DULoxetine HCL [Cymbalta] 60 mg PO BID@0800,182903/19/22 10/28/22 History Propranolol [Inderal] 20 mg PO BID@0800,182903/19/22 10/28/22 History Spironolactone 50 mg PO DAILY 03/19/22 10/28/22 History Pantoprazole Sodium [Protonix] 20 mg PO DAILY 04/17/22 10/28/22 History Dulaglutide [Trulicity] 1.5 mg SQ MO 07/09/22 10/28/22 History busPIRone HCL 15 mg PO BID 10/28/22 10/28/22 History Allergies Allergy/AdvReac Type Severity Reaction Status Date / Time Penicillins Allergy Rash/Hives Verified 10/28/22 19:40 milk AdvReac Nausea & Verified 10/29/22 01:07 Vomiting Physical Exam Vitals: Vital Signs Temp Pulse Pulse Resp BP BP Pulse Ox 10/29/22 05:00 97.8 F 72 16 95/63 98 10/29/22 02:00 73 16 10/29/22 00:00 98.1 F 73 16 109/70 98 10/28/22 23:58 89 18 116/75 97 10/28/22 20:56 80 18 105/70 100 10/28/22 17:29 98.6 F 80 18 132/78 99 Intake and Output 10/28/22 10/29/22 10/29/22 22:59 06:59 14:59 Other: Voiding Method Toilet # Voids 1 Weight 145.15 kg 145.15 kg Results 10/28/22 16:52 10/28/22 16:52 Cardiac Enzymes 10/28/22 10/28/22 10/28/22 Range/Units 16:52 16:52 20:55 AST 28 (14-36) U/L Troponin I <0.012 <0.012 (0.000-0.034) ng/mL 10/28/22 Range/Units 23:20 AST (14-36) U/L Troponin I <0.012 (0.000-0.034) ng/mL Coagulation 10/28/22 Range/Units 16:52 PT 10.5 (9.0-12.0) sec APTT 24.4 (22.0-30.0) sec CBC 10/28/22 Range/Units 16:52 WBC 9.1 (3.8-10.6) k/uL RBC 4.36 (3.80-5.40) m/uL Hgb 13.5 (11.4-16.0) gm/dL Hct 39.1 (34.0-46.0) % Plt Count 266 (150-450) k/uL Comprehensive Metabolic Panel 10/28/22 Range/Units 16:52 Sodium 136 L (137-145) mmol/L Potassium 4.3 (3.5-5.1) mmol/L Chloride 108 H (98-107) mmol/L Carbon Dioxide 21 L (22-30) mmol/L BUN 13 (7-17) mg/dL Creatinine 0.73 (0.52-1.04) mg/dL Glucose 112 H (74-99) mg/dL Calcium 7.9 L (8.4-10.2) mg/dL AST 28 (14-36) U/L ALT 25 (4-34) U/L Alkaline Phosphatase 48 (38-126) U/L Total Protein 6.5 (6.3-8.2) g/dL Albumin 3.6 (3.5-5.0) g/dL Current Medications Generic Name Dose Route Start Last Admin Trade Name Freq PRN Reason Stop Dose Admin Acetaminophen 500 mg 10/29/22 00:20 10/29/22 00:42 Acetaminophen Tab 500 Mg Tab PO 500 mg Q6HR PRN Administration Fever and/ or Pain Buspirone HCl 15 mg 10/28/22 21:00 10/29/22 00:43 Buspirone Hcl 5 Mg Tab PO 15 mg BID PIPE Administration Duloxetine HCl 60 mg 10/29/22 08:00 Duloxetine Hcl 60 Mg Capsule. PO BID@0800,1830 [facility] Meclizine HCl 12.5 mg 10/29/22 18:30 Meclizine 12.5 Mg Tab PO DAILY@1830 [facility] Nitroglycerin 0.4 mg 10/28/22 20:02 Nitroglycerin Sl Tabs 0.4 Mg Tab SUBLINGUAL Q5M PRN Chest Pain Nitroglycerin 1 inch 10/29/22 00:00 10/29/22 06:06 Nitroglycerin Oint 1 Inch/Gm Packet TOPICAL Not Given Q6HR [facility] Non-Formulary Medication 1.5 mg 11/03/22 09:00 Dulaglutide [Trulicity] SQ MO [facility] Pantoprazole Sodium 20 mg 10/29/22 07:30 Pantoprazole Sodium 40 Mg Granule Pkt PO [id number] [facility] Propranolol HCl 20 mg 10/29/22 08:00 Propranolol 20 Mg Tab PO BID@0800,1830 [facility] Rivaroxaban 20 mg 10/29/22 18:30 Rivaroxaban 20 Mg Tab PO DAILY@1830 [facility] Protocol Spironolactone 50 mg 10/29/22 09:00 Spironolactone 25 Mg Tab PO DAILY [facility] Intake and Output 10/28/22 10/29/22 10/29/22 22:59 06:59 14:59 Other: Voiding Method Toilet # Voids 1 Weight 145.15 kg 145.15 kg 10/28/22 16:52 10/28/22 16:52
[2022-10-29 15:22] LABS: Chol/HDL Ratio 3.18 Ratio
[2022-10-29 16:31] VITALS: BP 100/71; PULSE 85; RESP 17
[2022-10-29] MEDS ORDERED: MECLIZINE 12.5 MG TAB PO SCH (18:30)
[2022-10-29] MEDS ORDERED: RIVAROXABAN 20 MG TAB PO SCH (18:30)
[2022-10-29] MEDS ORDERED: SYMBICORT 160-4.5 MCG INHALER INHALATION SCH (20:00)
[2022-11-03] MEDS ORDERED: NON FORMULARY DRUG (Dulaglutide [Trulicity] 1.5 MG/0.5 ML Each) SQ SCH (09:00)
== END 2022-10-29 17:28 | disposition home or self-care (01) | DRG 392 ==
LOC: EC 16:52 → 3SCARD 20:03
PROVIDERS: ADMIT Family Medicine; ATTEND Family Medicine
DX: K21.9 Gastro-esophageal reflux disease without esophagitis (principal); Z88.0 Allergy status to penicillin; Z91.011 Allergy to milk products; D64.9 Anemia, unspecified; F41.9 Anxiety disorder, unspecified; Z87.891 Personal history of nicotine dependence; J45.909 Unspecified asthma, uncomplicated; I08.1 Rheumatic disorders of both mitral and tricuspid valves; E28.2 Polycystic ovarian syndrome; K44.9 Diaphragmatic hernia without obstruction or gangrene; I25.10 Atherosclerotic heart disease of native coronary artery without angina pectoris; M32.9 Systemic lupus erythematosus, unspecified; Z79.01 Long term (current) use of anticoagulants; Z79.899 Other long term (current) drug therapy; Z86.718 Personal history of other venous thrombosis and embolism
CPT/HCPCS: 36415; 71046; 80053; 80061; 83735; 84484; 85025; 85379; 85610; 85730; 93005; 94760; 99285

== ENCOUNTER 2024-04-18 08:48 | Day surgery (SDC) | payer MEDICARE, OTHER ==
[2024-04-14 14:13] VITALS: BMI 48.6
[~2024-04-18 08:48] MED LIST: LIDOCAINE 1% (10MG/ML) FOR IV START INTRADERMA PRN
[2024-04-18 09:49] LABS: Glucose,Whole Blood 133 mg/dL (70-110)
[2024-04-18 09:53] VITALS: TEMP 97.2
[2024-04-18] MEDS: LACTATED RINGERS 1,000 ML IV SCH (09:56)
[2024-04-18] MEDS: ONDANSETRON 4 MG/2 ML VIAL IVP STA (09:59)
[2024-04-18] MEDS: IV FLUID CONTINUATION 1,000 ML IV ONE (10:32)
[2024-04-18] MEDS ORDERED: PROPOFOL 10 MG/ML 20 ML VIAL IV ONE (10:50)
--- NOTE | 2024-04-18 10:53 | P.GSHP ---
History of Present Illness H&P Date: 04/18/24 Chief Complaint: Screening colonoscopy, anemia This is a 43-year-old female who presents today for colonoscopy. Patient has had issues with anemia. Past Medical History Past Medical History: Asthma, Deep Vein Thrombosis (DVT), Pulmonary Embolus (PE) Additional Past Medical History / Comment(s): hx of vertigo, Lupus, PCOS, hx of anemia, hx of iron infusions, right leg DVT and "blood clots in chest" History of Any Multi-Drug Resistant Organisms: None Reported Past Surgical History: Uterine Ablation Additional Past Surgical History / Comment(s): D/C x2 Past Anesthesia/Blood Transfusion Reactions: Motion Sickness, Postoperative Nausea & Vomiting (PONV) Additional Past Anesthesia/Blood Transfusion Reaction / Comment(s): no hx blood transfusion Smoking Status: Never smoker - Past Family History Mother Family Medical History: No Reported History Father Additional Family Medical History / Comment(s): paternal aunt has PEs Medications and Allergies Home Medications Medication Instructions Recorded Confirmed Type Peggy Root Vitamin 1 tab PO DAILY@0800 01/10/21 04/14/24 History Meclizine [Antivert] 12.5 mg PO BID 01/10/21 04/14/24 History Rivaroxaban [Xarelto] 20 mg PO DAILY@1830 01/10/21 04/14/24 History DULoxetine HCL [Cymbalta] 60 mg PO BID@0800,1830 03/19/22 04/14/24 History Propranolol [Inderal] 20 mg PO BID@0800,1830 03/19/22 04/14/24 History Spironolactone 50 mg PO DAILY 03/19/22 04/14/24 History Pantoprazole Sodium [Protonix] 20 mg PO QAM 04/17/22 04/14/24 History busPIRone HCL 15 mg PO TID 10/28/22 04/14/24 History Budesonide-Formot 160-4.5 Mcg 2 puff INHALATION RT-BID 30 Days 10/29/22 04/14/24 Rx [Symbicort 160-4.5 Mcg Inhaler] #1 each Nitroglycerin Sl Tabs [Nitrostat] 0.4 mg SUBLINGUAL Q5M PRN 90 Days 10/29/22 04/14/24 Rx #100 tab Gabapentin [Neurontin] 100 mg PO TID 04/14/24 04/14/24 History Semaglutide [Ozempic] 0.25 mg SQ MO 04/14/24 04/14/24 History Allergies Allergy/AdvReac Type Severity Reaction Status Date / Time Penicillins Allergy Rash/Hives Verified 04/18/24 09:23 milk AdvReac Nausea & Verified 04/18/24 09:23 Vomiting Surgical - Exam Vital Signs Temp Pulse Resp BP Pulse Ox 97.2 F L 103 H 18 129/71 98 04/18/24 09:51 04/18/24 09:51 04/18/24 09:51 04/18/24 09:51 04/18/24 09:51 - General well developed, well nourished, no distress - Eyes PERRL - ENT normal pinna - Neck no masses - Respiratory normal expansion - Cardiovascular Rhythm: regular - Abdomen Abdomen: soft, non tender Results - Labs Abnormal Lab Results - Last 24 Hours (Table) 04/18/24 Range/Units 09:47 POC Glucose (mg/dL) 133 H (70-110) mg/dL Assessment and Plan Assessment: Screening colonoscopy, anemia. Will perform colonoscopy
--- NOTE | 2024-04-18 11:18 | P.OP ---
Date of Procedure: 04/18/24 Preoperative Diagnosis: Screening colonoscopy Postoperative Diagnosis: Normal colon Procedure(s) Performed: Colonoscopy Anesthesia: MAC Surgeon: Mike Madrid Pathology: none sent Condition: stable Disposition: PACU Description of Procedure: The patient was placed on the endoscopy table in the lateral position. She received IV sedation. Digital rectal exam was performed. This revealed no abnormalities. The flexible colonoscope was then placed patient anus and passed throughout the entire colon. The ileocecal valve was visualized. The cecum, ascending and transverse colon appeared normal. The descending and sigmoid colon appeared normal. The scope was then withdrawn into the rectum and this appeared normal. Scope withdrawn for the patient.
[2024-04-18 11:46] VITALS: BP 966/60; PULSE 79; RESP 20
== END 2024-04-18 11:55 | disposition home or self-care (01) ==
LOC: ORWHC2ENDO 08:48
PROVIDERS: ATTEND Surgery
DX: D64.9 Anemia, unspecified
CPT/HCPCS: 45378; 84702

== ENCOUNTER 2024-05-05 07:09 | Day surgery (SDC) | payer MEDICARE ==
[2024-05-03 12:36] VITALS: BMI 48.0
[2024-05-05] MEDS: IV FLUID CONTINUATION 1,000 ML IV ONE (07:38)
[2024-05-05 07:46] VITALS: TEMP 97.5
[2024-05-05] MEDS ORDERED: LACTATED RINGERS 1,000 ML IV SCH (07:48)
[2024-05-05] MEDS ORDERED: LIDOCAINE 1% (10MG/ML) FOR IV START INTRADERMA PRN (07:48)
[2024-05-05] MEDS ORDERED: LIDOCAINE HCL/PF 20 MG/ML 10 ML AMP ONE (09:24)
[2024-05-05] MEDS ORDERED: fentaNYL (PF) 50 MCG/ML 2 ML AMP ONE ×2 (09:24)
[2024-05-05] MEDS ORDERED: PROPOFOL 10 MG/ML 20 ML VIAL IV ONE ×2 (09:24)
[2024-05-05] MEDS ORDERED: LIDOCAINE 2% (PF) 20 MG/ML 5 ML VIAL ONE (09:24)
--- NOTE | 2024-05-05 09:44 | P.OP ---
Date of Procedure: 05/05/24 Preoperative Diagnosis: gerd Postoperative Diagnosis: Paraesophageal hiatal hernia HPI strays Mild esophagitis Procedure(s) Performed: EGD Anesthesia: MAC Surgeon: Mike Madrid Pathology: other (Treatment Esophagus) Condition: stable Disposition: PACU Operative Findings: Large paraesophageal hiatal hernia Description of Procedure: The patient was placed on the endoscopy table in the lateral position. She received IV sedation. The gas was placed oropharynx passed in the esophagus and the stomach. Scope was placed with the pylorus. The first and second portion of the duodenum appeared normal. The scope was then brought back to the antrum this appeared mildly Flaim. A biopsy was performed. The scope was then retroflexed and the remainder of the stomach appeared normal. The patient had a moderate size paraesophageal hiatal hernia the GE junction was at 37 cm. The distal esophagus appeared mildly inflamed. A biopsy was performed. The proximal esophagus appeared normal. Scope withdrawn for the patient.
[2024-05-05 10:03] VITALS: BP 109/67; PULSE 78; RESP 16
== END 2024-05-05 10:20 | disposition home or self-care (01) ==
LOC: ORWHC2ENDO 07:09
PROVIDERS: ATTEND Surgery
DX: K21.00 Gastro-esophageal reflux disease with esophagitis, without bleeding (principal); K44.9 Diaphragmatic hernia without obstruction or gangrene; Z79.899 Other long term (current) drug therapy; Z88.0 Allergy status to penicillin
CPT/HCPCS: 88305; 84703; 43239; J3010; J2704; J2003